=== PATIENT | female | born 1955 | race Caucasian/White ===

== ENCOUNTER 2017-03-02 11:16 | Outpatient (CLI) | payer OTHER | END 2017-03-02 21:07 | disposition home or self-care (01) | LOC: SMA 11:16 | PROVIDERS: ATTEND Family Medicine | DX: Z12.31 Encounter for screening mammogram for malignant neoplasm of breast (principal) | CPT/HCPCS: G0202 ==

== ENCOUNTER 2018-06-08 10:14 | Outpatient (CLI) | payer OTHER | END 2018-06-08 19:18 | disposition home or self-care (01) | LOC: SMA 10:14 | PROVIDERS: ATTEND Physician Assistant Medical | DX: Z12.31 Encounter for screening mammogram for malignant neoplasm of breast (principal) | CPT/HCPCS: 77067 ==